=== PATIENT | male | born 1995 ===

== ENCOUNTER 2018-10-22 20:55 | Emergency (ER) | payer BC, OTHER ==
[~2018-10-22] VITALS: Ht 177.8 cm; Wt 107.6 kg
[2018-10-22] MEDS ORDERED: hydrOXYzine 25 MG tablet PO ONE (23:10)
[2018-10-22] MEDS ORDERED: HYDR-3686 PO (23:16)
[2018-10-22 23:26] VITALS: BP 154/99
== END 2018-10-22 23:28 | disposition home or self-care (01) ==
LOC: ER 20:56
DX: F41.0 Panic disorder [episodic paroxysmal anxiety] (principal); I10 Essential (primary) hypertension; Z79.899 Other long term (current) drug therapy
CPT/HCPCS: 99284; Q0177; Z7610